=== PATIENT | female | born 1950 | race African-American/Black ===

== ENCOUNTER → 2016-05-16 | Outpatient (CLI) | payer MEDICARE, MEDICAID ==
[2016-05-16 10:45] LABS: ABSOLUTE EOSINOPHILS # (AUTO) 0.4 10^3/uL (0.0-0.6); ABSOLUTE LYMPHOCYTES (AUTO) 1.9 10^3/uL (0.5-4.7); ABSOLUTE MONOCYTES (AUTO) 0.7 10^3/uL (0.1-1.4); ABSOLUTE NEUT (AUTO) 4.4 10^3/uL (1.7-8.2); BASOPHILS % (AUTO) 0.6 % (0-2); EOSINOPHILS % (AUTO) 5.7 % (0-6); HEMATOCRIT 42.4 % (36.0-47.0); HEMOGLOBIN 13.5 g/dL (12.0-15.5); HGB HCT DIFFERENCE -1.9; MEAN CORPUSCULAR HEMOGLOBIN 25.9 pg (27.0-33.4); MEAN CORPUSCULAR HGB CONC 31.9 g/dL (32.0-36.0); MEAN CORPUSCULAR VOLUME 81 fl (80-97); MONOCYTES % (AUTO) 9.2 % (3-13); RED BLOOD COUNT 5.21 10^6/uL (3.72-5.28); RED CELL DISTRIBUTION WIDTH 16.6 % (11.5-14.0); SEGMENTED NEUTROPHILS % (AUTO) 58.5 % (42-78); WHITE BLOOD COUNT 7.5 10^3/uL (4.0-10.5)
[2016-05-16 11:00] LABS: ALANINE AMINOTRANSFERASE 23 U/L (9-52); ALBUMIN 3.9 g/dL (3.5-5.0); ALKALINE PHOSPHATASE 69 U/L (38-126); ANION GAP 12 (5-19); ASPARTATE AMINO TRANSFERASE 21 U/L (14-36); BILIRUBIN,TOTAL 0.7 mg/dL (0.2-1.3); BLOOD UREA NITROGEN 18 mg/dL (7-20); CALCIUM 9.3 mg/dL (8.4-10.2); CARBON DIOXIDE 31 mmol/L (22-30); CHLORIDE 102 mmol/L (98-107); CHOLESTEROL 190.02 mg/dL (0-200); CREATININE RESULT 0.91 mg/dL (0.52-1.25); Direct HDL 47 mg/dL (>40); GLUCOSE 96 mg/dL (75-110); POTASSIUM 3.9 mmol/L (3.6-5.0); SODIUM 145.2 mmol/L (137-145); TOTAL PROTEIN 7.2 g/dL (6.3-8.2); TRIGLYCERIDES 107 mg/dL (<150)
[2016-05-16 11:11] LABS: DIRECT LDL 109 mg/dL (<100)
[2016-05-16 11:30] LABS: THYROID STIMULATING HORMONE 4.66 uIU/mL (0.47-4.68)
== END ==
LOC: OD 09:14
PROVIDERS: ATTEND Internal Medicine
DX: E78.2 Mixed hyperlipidemia (principal); R79.89 Other specified abnormal findings of blood chemistry; E55.9 Vitamin D deficiency, unspecified; Z13.29 Encounter for screening for other suspected endocrine disorder; Z79.899 Other long term (current) drug therapy
CPT/HCPCS: 36415; 80053; 80061; 82306; 84439; 84443; 85025

== ENCOUNTER 2017-04-19 06:17 | Emergency (ER) | payer MEDICARE, MEDICAID ==
--- NOTE | 2017-04-19 07:48 | EKG REPORT ---
SEVERITY:- ABNORMAL ECG - SINUS RHYTHM BORDERLINE T ABNORMALITIES, INFERIOR LEADS : Confirmed by: Scott Morales MD 19-Apr-2017 07:47:50
--- NOTE | 2017-04-19 07:59 | RADIOLOGY REPORT (SQ) ---
EXAM DESCRIPTION: CHEST SINGLE VIEW COMPLETED DATE/TIME: 04/19/2017 7:51 am REASON FOR STUDY: sob COMPARISON: None. EXAM PARAMETERS: NUMBER OF VIEWS: One view. TECHNIQUE: Single frontal radiographic view of the chest acquired. RADIATION DOSE: NA LIMITATIONS: None. FINDINGS: LUNGS AND PLEURA: No opacities, masses or pneumothorax. No pleural effusion. MEDIASTINUM AND HILAR STRUCTURES: No masses. Contour normal. HEART AND VASCULAR STRUCTURES: Heart normal in size. Normal vasculature. BONES: No acute findings. HARDWARE: None in the chest. OTHER: No other significant finding. IMPRESSION: NO ACUTE RADIOGRAPHIC FINDING IN THE CHEST. TECHNICAL DOCUMENTATION: JOB ID: [id number] [employer]- All Rights Reserved
[2017-04-19 08:07] LABS: ABSOLUTE BASOPHILS # (AUTO) 0.1 10^3/uL (0.0-0.2); ABSOLUTE EOSINOPHILS # (AUTO) 0.4 10^3/uL (0.0-0.6); ABSOLUTE LYMPHOCYTES (AUTO) 1.1 10^3/uL (0.5-4.7); ABSOLUTE MONOCYTES (AUTO) 0.5 10^3/uL (0.1-1.4); ABSOLUTE NEUT (AUTO) 4.9 10^3/uL (1.7-8.2); BASOPHILS % (AUTO) 1.2 % (0-2); EOSINOPHILS % (AUTO) 5.2 % (0-6); HEMATOCRIT 39.9 % (36.0-47.0); MEAN CORPUSCULAR HEMOGLOBIN 26.5 pg (27.0-33.4); MEAN CORPUSCULAR HGB CONC 32.7 g/dL (32.0-36.0); MEAN CORPUSCULAR VOLUME 81 fl (80-97); MONOCYTES % (AUTO) 7.9 % (3-13); PLATELET COUNT 146 10^3/uL (150-450); RED BLOOD COUNT 4.93 10^6/uL (3.72-5.28); SEGMENTED NEUTROPHILS % (AUTO) 69.7 % (42-78); TOTAL CELLS COUNTED % (AUTO) 100 %
[2017-04-19 08:12] LABS: APPEARANCE,URINE SLIGHTLY-CLOUDY; BILIRUBIN,URINE NEGATIVE (NEGATIVE); COLOR,URINE YELLOW; GLUCOSE, URINE NEGATIVE (NEGATIVE); KETONES,URINE NEGATIVE (NEGATIVE); LEUKOCYTE ESTERASE,URINE SMALL (NEGATIVE); NITRITE,URINE NEGATIVE (NEGATIVE); PROTEIN,URINE NEGATIVE (NEGATIVE); URINE SPECIFIC GRAVITY 1.015
[2017-04-19 08:28] LABS: ALANINE AMINOTRANSFERASE 25 U/L (9-52); ALBUMIN 3.6 g/dL (3.5-5.0); ALKALINE PHOSPHATASE 59 U/L (38-126); ANION GAP 8 (5-19); ASPARTATE AMINO TRANSFERASE 23 U/L (14-36); BILIRUBIN,DIRECT 0.4 mg/dL (0.0-0.4); BILIRUBIN,TOTAL 0.7 mg/dL (0.2-1.3); BLOOD UREA NITROGEN 15 mg/dL (7-20); CALCIUM 9.2 mg/dL (8.4-10.2); CARBON DIOXIDE 27 mmol/L (22-30); CHLORIDE 104 mmol/L (98-107); CREATINE KINASE 82 U/L (30-135); GLUCOSE 103 mg/dL (75-110); POTASSIUM 3.9 mmol/L (3.6-5.0); SODIUM 139.3 mmol/L (137-145); TOTAL PROTEIN 6.7 g/dL (6.3-8.2)
[2017-04-19 08:39] LABS: CREATINE KINASE MB 0.43 ng/mL (<4.55)
[2017-04-19 08:40] LABS: TROPONIN I < 0.012 ng/mL
--- NOTE | 2017-04-19 09:04 | ER Document Report ---
ED General - General Chief Complaint: Weakness Stated Complaint: WEAKNESS Time Seen by Provider: 04/19/17 07:06 TRAVEL OUTSIDE OF THE [place] IN LAST 30 DAYS: No - HPI Patient complains to provider of: Weakness Notes: Patient coming in for evaluation of weakness. Patient states over the last 3 days taking in a antibiotic ciprofloxacin for UTI. Patient states also having some slight nausea. Patient states weakness however no unilateral no fevers no chills no nausea no vomiting patient was able to bring herself to the ER. Patient resting comfortably upon my evaluation. - Related Data Allergies/Adverse Reactions: iodine Allergy (Verified 01/05/17 10:34) shrimp Allergy (Verified 01/05/17 10:34) Past Medical History - Social History Smoking Status: Unknown if Ever Smoked Frequency of alcohol use: None Family History: Reviewed & Not Pertinent Patient has suicidal ideation: No Patient has homicidal ideation: No Renal/ Medical History: Denies: Hx Peritoneal Dialysis Musculoskeltal Medical History: Reports Hx Arthritis Past Surgical History: Reports: Hx Hysterectomy Review of Systems - Review of Systems Constitutional: Weakness EENT: No symptoms reported Cardiovascular: No symptoms reported Respiratory: No symptoms reported Gastrointestinal: No symptoms reported Genitourinary: No symptoms reported Female Genitourinary: No symptoms reported Musculoskeletal: No symptoms reported Skin: No symptoms reported Hematologic/Lymphatic: No symptoms reported Neurological/Psychological: No symptoms reported -: Yes All other systems reviewed and negative Physical Exam - Vital signs Vitals: Temp Pulse Resp BP Pulse Ox 98.6 F 61 18 152/82 H 97 04/19/17 06:25 04/19/17 06:25 04/19/17 06:25 04/19/17 06:25 04/19/17 06:25 Interpretation: Normal - General General appearance: Appears well, Alert - HEENT Head: Normocephalic, Atraumatic Eyes: Normal Pupils: PERRL - Respiratory Respiratory status: No respiratory distress Chest status: Nontender Breath sounds: Normal Chest palpation: Normal - Cardiovascular Rhythm: Regular Heart sounds: Normal auscultation Murmur: No - Abdominal Inspection: Normal Distension: No distension Bowel sounds: Normal Tenderness: Nontender Organomegaly: No organomegaly - Back Back: Normal, Nontender - Extremities General upper extremity: Normal inspection, Nontender, Normal color, Normal ROM , Normal temperature General lower extremity: Normal inspection, Nontender, Normal color, Normal ROM , Normal temperature, Normal weight bearing. No: Alessia's sign - Neurological Neuro grossly intact: Yes Cognition: Normal Orientation: AAOx4 [place] Coma Scale Eye Opening: Spontaneous López Coma Scale Verbal: Oriented López Coma Scale Motor: Obeys Commands López Coma Scale Total: 15 Speech: Normal Motor strength normal: LUE, RUE, LLE, RLE Sensory: Normal - Psychological Associated symptoms: Normal affect, Normal mood - Skin Skin Temperature: Warm Skin Moisture: Dry Skin Color: Normal Course - Re-evaluation Re-evalutation: 04/19/17 15:10 Patient coming in for evaluation of weakness. No signs of acute pathology on our evaluation. Patient may be experiencing side effects from ciprofloxacin. Patient was given nausea medication patient will be discharged home. The patient presents with nausea without signs of peritonitis or other life- threatening or serious etiology. The patient appears stable for discharge and has been instructed to return immediately if the symptoms worsen in any way, or in 8-12hr if not improved for re-evaluation. The patient has been instructed to return if the symptoms worsen or change in any way. - Vital Signs Vital signs: Temp Pulse Resp BP Pulse Ox 97.7 F 55 L 15 170/93 H 95 04/19/17 10:00 04/19/17 10:00 04/19/17 10:00 04/19/17 10:00 04/19/17 10:00 - Laboratory Result Diagrams: 04/19/17 07:54 04/19/17 07:54 Laboratory results interpreted by me: 04/19/17 04/19/17 04/19/17 07:17 07:54 07:54 MCH 26.5 L RDW 16.0 H Plt Count 146 L Est GFR (Non-Af Amer) 53 L Urine Urobilinogen 2.0 H Ur Leukocyte Esterase SMALL H Discharge - Discharge Clinical Impression: Nausea, Weakness, UTI under current treatment Condition: Good Disposition: HOME, SELF-CARE Instructions: Ciprofloxacin ([facility]), Nausea or Vomiting, Nonspecific ([facility]), Urinary Tract Infection ([facility]), Weakness ([facility]) Additional Instructions: Your laboratory studies today did not show any critical pathology for your generalized weakness. I do believe your weakness and feeling unwell and nausea is more likely due to the antibiotic that you are taking right now. This is a side effect of the antibiotic. He may break her tablets in half and take him 4 times a day. Please make sure you are eating healthy diet I would recommend yogurt to prevent any further diarrhea from your antibiotics. He may take the Zofran as provided return to the ER for any concerns follow-up with your primary care physician in 3-5 days. Prescriptions: Ondansetron [Zofran Odt 4 mg Tablet] 4 mg PO Q4HP PRN #30 tab.rapdis PRN Reason: Forms: Elevated Blood Pressure Referrals: IRAIDA MALAGON MD [Primary Care Provider] - Follow up in 3-5 days
[2017-04-19 10:23] VITALS: BP 170/93
== END 2017-04-19 10:08 | disposition home or self-care (01) ==
LOC: ER 06:17
DX: R53.1 Weakness (principal); R11.0 Nausea; N39.0 Urinary tract infection, site not specified; Z91.013 Allergy to seafood
CPT/HCPCS: 36415; 71045; 80053; 81001; 82550; 82553; 84484; 85025; 93005; 93010; 99285

== ENCOUNTER 2017-06-12 09:23 | Emergency (ER) | payer MEDICARE, MEDICAID ==
--- NOTE | 2017-06-12 10:29 | RADIOLOGY REPORT (SQ) ---
EXAM DESCRIPTION: CHEST SINGLE VIEW COMPLETED DATE/TIME: 06/12/2017 10:07 am REASON FOR STUDY: WEAKNESS COMPARISON: 04/19/2017 EXAM PARAMETERS: NUMBER OF VIEWS: One view. TECHNIQUE: Single frontal radiographic view of the chest acquired. RADIATION DOSE: NA LIMITATIONS: None. FINDINGS: LUNGS AND PLEURA: No opacities, masses or pneumothorax. No pleural effusion. MEDIASTINUM AND HILAR STRUCTURES: No masses. Contour normal. HEART AND VASCULAR STRUCTURES: Heart normal in size. Normal vasculature. BONES: No acute findings. HARDWARE: None in the chest. OTHER: No other significant finding. IMPRESSION: NO ACUTE RADIOGRAPHIC FINDING IN THE CHEST. TECHNICAL DOCUMENTATION: JOB ID: [id number] [employer]- All Rights Reserved Reading location - IP/workstation name: [email or web address]
[2017-06-12 10:39] LABS: APPEARANCE,URINE CLOUDY; BILIRUBIN,URINE NEGATIVE (NEGATIVE); COLOR,URINE AMBER; GLUCOSE, URINE NEGATIVE (NEGATIVE); KETONES,URINE NEGATIVE (NEGATIVE); LEUKOCYTE ESTERASE,URINE SMALL (NEGATIVE); NITRITE,URINE NEGATIVE (NEGATIVE); PROTEIN,URINE 30 mg/dL (NEGATIVE); URINE SPECIFIC GRAVITY 1.021
[2017-06-12] MEDS ORDERED: NORMAL SALINE 1000 ML 1,000 ML IV ONE (10:54)
[2017-06-12 11:13] LABS: ABSOLUTE BASOPHILS # (AUTO) 0.1 10^3/uL (0.0-0.2); ABSOLUTE EOSINOPHILS # (AUTO) 0.4 10^3/uL (0.0-0.6); ABSOLUTE LYMPHOCYTES (AUTO) 1.8 10^3/uL (0.5-4.7); ABSOLUTE MONOCYTES (AUTO) 0.7 10^3/uL (0.1-1.4); ABSOLUTE NEUT (AUTO) 6.3 10^3/uL (1.7-8.2); BASOPHILS % (AUTO) 0.9 % (0-2); EOSINOPHILS % (AUTO) 4.1 % (0-6); HEMATOCRIT 41.5 % (36.0-47.0); HEMOGLOBIN 13.6 g/dL (12.0-15.5); LYMPHOCYTES % (AUTO) 19.8 % (13-45); MEAN CORPUSCULAR HEMOGLOBIN 26.5 pg (27.0-33.4); MEAN CORPUSCULAR HGB CONC 32.6 g/dL (32.0-36.0); MEAN CORPUSCULAR VOLUME 81 fl (80-97); MONOCYTES % (AUTO) 7.9 % (3-13); PLATELET COUNT 178 10^3/uL (150-450); RED BLOOD COUNT 5.11 10^6/uL (3.72-5.28); RED CELL DISTRIBUTION WIDTH 15.5 % (11.5-14.0); SEGMENTED NEUTROPHILS % (AUTO) 67.3 % (42-78); TOTAL CELLS COUNTED % (AUTO) 100 %; WHITE BLOOD COUNT 9.3 10^3/uL (4.0-10.5)
[2017-06-12 11:34] LABS: ALANINE AMINOTRANSFERASE 23 U/L (9-52); ALBUMIN 4.2 g/dL (3.5-5.0); ALKALINE PHOSPHATASE 72 U/L (38-126); ANION GAP 10 (5-19); ASPARTATE AMINO TRANSFERASE 24 U/L (14-36); BILIRUBIN,DIRECT 0.2 mg/dL (0.0-0.4); BILIRUBIN,TOTAL 0.7 mg/dL (0.2-1.3); BLOOD UREA NITROGEN 20 mg/dL (7-20); CALCIUM 9.4 mg/dL (8.4-10.2); CARBON DIOXIDE 33 mmol/L (22-30); CHLORIDE 100 mmol/L (98-107); CREATINE KINASE 89 U/L (30-135); GLUCOSE 105 mg/dL (75-110); POTASSIUM 3.7 mmol/L (3.6-5.0); SODIUM 143.3 mmol/L (137-145); TOTAL PROTEIN 7.8 g/dL (6.3-8.2)
[2017-06-12 11:46] LABS: CREATINE KINASE MB 0.51 ng/mL (<4.55); TROPONIN I < 0.012 ng/mL
--- NOTE | 2017-06-12 13:25 | ER Document Report ---
ED General - General Chief Complaint: Weakness Stated Complaint: WEAKNESS Time Seen by Provider: 06/12/17 09:41 TRAVEL OUTSIDE OF THE [place] IN LAST 30 DAYS: No - HPI Patient complains to provider of: Weakness Notes: Patient coming in for evaluation of generalized weakness and dizziness patient states was recently increased her blood pressure medication from 10 mg lisinopril to 20. Denies any head pain chest pain. Patient states slight nausea denies any nausea vomiting states mild diarrhea patient otherwise is resting company upon my evaluation - Related Data Allergies/Adverse Reactions: iodine Allergy (Verified 06/12/17 09:27) shrimp Allergy (Verified 06/12/17 09:27) Past Medical History - Social History Smoking Status: Never Smoker Chew tobacco use (# tins/day): No Frequency of alcohol use: None Drug Abuse: None Family History: Reviewed & Not Pertinent Patient has suicidal ideation: No Patient has homicidal ideation: No - Past Medical History Cardiac Medical History: Reports: Hx Hypercholesterolemia, Hx Hypertension Renal/ Medical History: Denies: Hx Peritoneal Dialysis Musculoskeltal Medical History: Reports Hx Arthritis Past Surgical History: Reports: Hx Hysterectomy Review of Systems - Review of Systems Constitutional: Weakness EENT: No symptoms reported Cardiovascular: No symptoms reported Respiratory: No symptoms reported Gastrointestinal: No symptoms reported Genitourinary: No symptoms reported Female Genitourinary: No symptoms reported Musculoskeletal: No symptoms reported Skin: No symptoms reported Hematologic/Lymphatic: No symptoms reported Neurological/Psychological: No symptoms reported -: Yes All other systems reviewed and negative Physical Exam - Vital signs Vitals: Temp Pulse Resp BP Pulse Ox 98.1 F 77 18 132/74 H 98 06/12/17 09:29 06/12/17 09:29 06/12/17 09:29 06/12/17 09:29 06/12/17 09:29 Interpretation: Normal - General General appearance: Appears well, Alert - HEENT Head: Normocephalic, Atraumatic Eyes: Normal Pupils: PERRL - Respiratory Respiratory status: No respiratory distress Chest status: Nontender Breath sounds: Normal Chest palpation: Normal - Cardiovascular Rhythm: Regular Heart sounds: Normal auscultation Murmur: No - Abdominal Inspection: Normal Distension: No distension Bowel sounds: Normal Tenderness: Nontender Organomegaly: No organomegaly - Back Back: Normal, Nontender - Extremities General upper extremity: Normal inspection, Nontender, Normal color, Normal ROM , Normal temperature General lower extremity: Normal inspection, Nontender, Normal color, Normal ROM , Normal temperature, Normal weight bearing. No: Alessia's sign - Neurological Neuro grossly intact: Yes Cognition: Normal Orientation: AAOx4 [place] Coma Scale Eye Opening: Spontaneous López Coma Scale Verbal: Oriented López Coma Scale Motor: Obeys Commands [place] Coma Scale Total: 15 Speech: Normal Motor strength normal: LUE, RUE, LLE, RLE Sensory: Normal - Psychological Associated symptoms: Normal affect, Normal mood - Skin Skin Temperature: Warm Skin Moisture: Dry Skin Color: Normal Course - Re-evaluation Re-evalutation: 06/12/17 14:49 Patient laboratory results not show any signs of significant pathology. orthostatics were positiveWith dizziness upon standing slight elevation in creatinine more likely due to dehydration or could be due to increase in lisinopril however no critical etiology patient feeling better with IV fluids. Explained to patient that her blood pressure has been quite marginal she has been here in the patient currently is asymptomatic. Patient was educated to return to her decreased dose of 10 mg of lisinopril. Patient will be discharged home. - Vital Signs Vital signs: Temp Pulse Resp BP Pulse Ox 97.2 F 60 17 136/74 H 98 06/12/17 14:08 06/12/17 14:08 06/12/17 14:08 06/12/17 14:08 06/12/17 14:08 - Laboratory Result Diagrams: 06/12/17 10:57 06/12/17 10:57 Laboratory results interpreted by me: 06/12/17 06/12/17 06/12/17 10:08 10:57 10:57 MCH 26.5 L RDW 15.5 H Carbon Dioxide 33 H Creatinine 1.32 H Est GFR ( Amer) 48 L Est GFR (Non-Af Amer) 40 L Urine Protein 30 H Urine Urobilinogen 2.0 H Ur Leukocyte Esterase SMALL H Discharge - Discharge Clinical Impression: Generalized weakness, Dehydration Condition: Good Disposition: HOME, SELF-CARE Instructions: Dehydration ([facility]), Weakness ([facility]) Additional Instructions: Laboratory studies show some slight dehydration which is also confirmed with your positive orthostatics. Please make sure you are drinking plenty water and eating healthy diet. I would recommend decreasing her lisinopril back to the 10 mg. Also highly recommend following up with her primary care physician in the next 3-5 days. Referrals: IRAIDA MALAGON MD [Primary Care Provider] - Follow up in 3-5 days
[2017-06-12 14:12] VITALS: BP 136/74
--- NOTE | 2017-06-12 15:11 | EKG REPORT ---
SEVERITY:- ABNORMAL ECG - SINUS RHYTHM LEFT VENTRICULAR HYPERTROPHY : Confirmed by: Scott Morales MD 12-Jun-2017 15:10:19
== END 2017-06-12 14:12 | disposition home or self-care (01) ==
LOC: ER 09:23
DX: R53.1 Weakness (principal); E86.0 Dehydration; R19.7 Diarrhea, unspecified; I10 Essential (primary) hypertension; Z79.899 Other long term (current) drug therapy; Z90.710 Acquired absence of both cervix and uterus
CPT/HCPCS: 93005; 99285; 96360; 36415; 82553; 82550; 83735; 85025; 80053; 81001; 84484; 71045; 93010; J7030

== ENCOUNTER 2018-03-06 09:20 | Emergency (ER) | payer MEDICARE, MEDICAID ==
--- NOTE | 2018-03-06 09:38 | ER Document Report ---
ED Medical Screen (RME) - General Chief Complaint: Weakness Stated Complaint: SHORTNESS OF BREATH Time Seen by Provider: 03/06/18 09:26 TRAVEL OUTSIDE OF THE [place] IN LAST 30 DAYS: No - Related Data Allergies/Adverse Reactions: iodine Allergy (Verified 03/06/18 09:20) shrimp Allergy (Verified 03/06/18 09:20) Past Medical History - Past Medical History Cardiac Medical History: Reports: Hx Hypercholesterolemia, Hx Hypertension Renal/ Medical History: Denies: Hx Peritoneal Dialysis Musculoskeltal Medical History: Reports Hx Arthritis Past Surgical History: Reports: Hx Hysterectomy Physical Exam - Vital signs Vitals: Temp Pulse Resp BP Pulse Ox 98.4 F 65 16 192/68 H 97 03/06/18 09:25 03/06/18 09:25 03/06/18 09:25 03/06/18 09:25 03/06/18 09:25 Course - Re-evaluation Re-evalutation: 03/06/18 09:36 This is a 67-year-old female who complains of generalized weakness for an unknown period of time. She says at least the last 2 weeks. She is been seen by her primary physician related to this approximately 1 week prior who was uncertain what could be the underlying cause. She presents today because she got up that her blood sugar was low though she is not a diabetic did not feel up to going to [facility]u prompting her to come to the emergency room. I have seen and evaluated this patient in rapid medical screening exam fashion. I have initiated a evaluation and workup, this patient will require further investigation evaluation and disposition determination by secondary provider. - Vital Signs Vital signs: Temp Pulse Resp BP Pulse Ox 98.4 F 65 16 192/68 H 97 03/06/18 09:25 03/06/18 09:25 03/06/18 09:25 03/06/18 09:25 03/06/18 09:25 Doctor's Discharge - Discharge Referrals: IRAIDA MALAGON MD [Primary Care Provider] - Follow up as needed
--- NOTE | 2018-03-06 09:44 | ER Document Report ---
ED General - General Chief Complaint: Weakness Stated Complaint: SHORTNESS OF BREATH Time Seen by Provider: 03/06/18 09:26 Notes: Patient is a 67-year-old female that presents to the emergency department for chief complaint of shortness of breath. Patient states she is been feeling generally weak and short of breath of the past 2 weeks, she states she initially saw her primary care physician for this, and he thought it was related to her m ild asthma or COPD, and told her to use her inhaler, she states is been a little bit worse last few days so she decided to come to the emergency department. She denies having any associated chest pain, wheezing, lightheadedness, fevers, chills, cough, nausea, vomiting or abdominal pain. She states that she just feels generally weak, and has lack of energy. She does not wear oxygen at home. Denies history of heart failure. Past Medical History: Hypertension, hyperlipidemia, history of DVT and PE, remotely, not currently on blood thinners Past Surgical History: Hysterectomy Social History: Denies tobacco, alcohol or drug use. Family History: Reviewed and noncontributory for presenting illness Allergies: Reviewed, see documented allergy list. REVIEW OF SYSTEMS: Other than noted above, the 12 point review of systems was reviewed with the patient and were negative, all pertinent findings are included in the HPI. PHYSICAL EXAMINATION: Vital signs reviewed, nursing noted reviewed. GENERAL: Obese female, well-appearing, well-nourished and in no acute distress. HEAD: Atraumatic, normocephalic. EYES: Eyes appear normal, extraocular movements intact, sclera anicteric, conjunctiva are normal. ENT: nares patent, oropharynx clear without exudates. Moist mucous membranes. NECK: Normal range of motion, supple without lymphadenopathy LUNGS: Breath sounds clear to auscultation bilaterally and equal. No wheezes rales or rhonchi. HEART: Regular rate and rhythm without murmurs ABDOMEN: Soft, nontender, normoactive bowel sounds. No rebound, guarding, or rigidity. No masses appreciated. EXTREMITIES: Nontender, good range of motion, no pitting or edema. NEUROLOGICAL: No focal neurological deficits. Moves all extremities spontaneously Motor and sensory grossly intact on exam. PSYCH: Normal mood, normal affect. SKIN: Warm, Dry, normal turgor, no rashes or lesions noted on exposed skin TRAVEL OUTSIDE OF THE [place] IN LAST 30 DAYS: No - Related Data Allergies/Adverse Reactions: iodine Allergy (Verified 03/06/18 09:20) shrimp Allergy (Verified 03/06/18 09:20) Past Medical History - Social History Smoking Status: Never Smoker Frequency of alcohol use: None Drug Abuse: None Family History: Reviewed & Not Pertinent Patient has suicidal ideation: No Patient has homicidal ideation: No - Past Medical History Cardiac Medical History: Reports: Hx Hypercholesterolemia, Hx Hypertension Renal/ Medical History: Denies: Hx Peritoneal Dialysis Musculoskeletal Medical History: Reports Hx Arthritis Past Surgical History: Reports: Hx Hysterectomy Physical Exam - Vital signs Vitals: Temp Pulse Resp BP Pulse Ox 98.4 F 65 16 192/68 H 97 03/06/18 09:25 03/06/18 09:25 03/06/18 09:25 03/06/18 09:25 03/06/18 09:25 Course - Re-evaluation Re-evalutation: Patient seen and examined vital signs reviewed. Laboratory data and imaging were ordered as appropriate for the patient's presenting symptoms and complaint, with consideration of any critical or life threatening conditions that may be associated with their obtained history and ex am as noted above. Results were reviewed when available and demonstrated EKG was unchanged from anna marie or, negative troponin, and BNP, chest x-ray negative, blood work otherwise unremarkable, and UA, not convincing of UTI, given patient history of pulmonary embolism, a VQ scan was ordered, patient has an allergy to iodine and cannot receive CTA, the VQ scan was negative for pulmonary embolism. The patient was re-evaluated and was stable, not hypoxic, blood pressure stable Evaluation was most consistent with dyspnea, nonspecific, unclear etiology, likely deconditioning, after extensive evaluation in the emergency department feel the patient can be discharged to home. Results were discussed with the patient at this point, after careful consideration I feel that that patient can be discharged from the emergency department, the patient was educated treatments and reasons to return to the [facility] department based on their presumed diagnosis as noted above, they were advised to followup with a primary care physician in 2-3 days. Patient was agreeable to plan of care. *Note is created using voice recognition software and may contain spelling, syntax or grammatical errors. Laboratory 03/06/18 03/06/18 03/06/18 10:00 10:10 10:10 WBC 7.8 RBC 4.98 Hgb 13.4 Hct 41.6 MCV 84 MCH 26.9 L MCHC 32.2 RDW 15.9 H Plt Count 164 Seg Neutrophils % 69.5 Lymphocytes % 18.7 Monocytes % 6.4 Eosinophils % 4.7 Basophils % 0.7 Absolute Neutrophils 5.5 Absolute Lymphocytes 1.5 Absolute Monocytes 0.5 Absolute Eosinophils 0.4 Absolute Basophils 0.1 Sodium 139.6 Potassium 3.7 Chloride 101 Carbon Dioxide 31 H Anion Gap 8 BUN 12 Creatinine 1.07 Est GFR ( Amer) > 60 Est GFR (Non-Af Amer) 51 L Glucose 96 POC Glucose 96 Calcium 8.9 Total Bilirubin 0.5 Direct Bilirubin 0.2 Neonat Total Bilirubin Not Reportable Neonat Direct Bilirubin Not Reportable Neonat Indirect Bili Not Reportable AST 19 ALT 9 Alkaline Phosphatase 78 Troponin I NT-Pro-B Natriuret Pep Total Protein 7.0 Albumin 3.7 TSH Free T4 Urine Color Urine Appearance Urine pH Ur Specific [place] Urine Protein Urine Glucose (UA) Urine Ketones Urine Blood Urine Nitrite Urine Bilirubin Urine Urobilinogen Ur Leukocyte Esterase Urine WBC (Auto) Urine RBC (Auto) Urine Bacteria (Auto) Squamous Epi Cells Auto Amorphous Sediment Auto Urine Mucus (Auto) Urine Ascorbic Acid Influenza A (Rapid) Influenza B (Rapid) 03/06/18 03/06/18 03/06/18 10:10 10:10 10:10 WBC RBC Hgb Hct MCV MCH MCHC RDW Plt Count Seg Neutrophils % Lymphocytes % Monocytes % Eosinophils % Basophils % Absolute Neutrophils Absolute Lymphocytes Absolute Monocytes Absolute Eosinophils Absolute Basophils Sodium Potassium Chloride Carbon Dioxide Anion Gap BUN Creatinine Est GFR ( Amer) Est GFR (Non-Af Amer) Glucose POC Glucose Calcium Total Bilirubin Direct Bilirubin Neonat Total Bilirubin Neonat Direct Bilirubin Neonat Indirect Bili AST ALT Alkaline Phosphatase Troponin I NT-Pro-B Natriuret Pep Total Protein Albumin TSH 3.27 Free T4 1.32 Urine Color YELLOW Urine Appearance CLOUDY Urine pH 6.0 Ur Specific [place] 1.008 Urine Protein NEGATIVE Urine Glucose (UA) NEGATIVE Urine Ketones NEGATIVE Urine Blood SMALL H Urine Nitrite NEGATIVE Urine Bilirubin NEGATIVE Urine Urobilinogen NEGATIVE Ur Leukocyte Esterase LARGE H Urine WBC (Auto) 8 Urine RBC (Auto) 18 Urine Bacteria (Auto) 2+ Squamous Epi Cells Auto 42 Amorphous Sediment Auto TRACE Urine Mucus (Auto) RARE Urine Ascorbic Acid NEGATIVE Influenza A (Rapid) NEGATIVE Influenza B (Rapid) NEGATIVE 03/06/18 10:10 WBC RBC Hgb Hct MCV MCH MCHC RDW Plt Count Seg Neutrophils % Lymphocytes % Monocytes % Eosinophils % Basophils % Absolute Neutrophils Absolute Lymphocytes Absolute Monocytes Absolute Eosinophils Absolute Basophils Sodium Potassium Chloride Carbon Dioxide Anion Gap BUN Creatinine Est GFR ( Amer) Est GFR (Non-Af Amer) Glucose POC Glucose Calcium Total Bilirubin Direct Bilirubin Neonat Total Bilirubin Neonat Direct Bilirubin Neonat Indirect Bili AST ALT Alkaline Phosphatase Troponin I < 0.012 NT-Pro-B Natriuret Pep 413 Total Protein Albumin TSH Free T4 Urine Color Urine Appearance Urine pH Ur Specific [place] Urine Protein Urine Glucose (UA) Urine Ketones Urine Blood Urine Nitrite Urine Bilirubin Urine Urobilinogen Ur Leukocyte Esterase Urine WBC (Auto) Urine RBC (Auto) Urine Bacteria (Auto) Squamous Epi Cells Auto Amorphous Sediment Auto Urine Mucus (Auto) Urine Ascorbic Acid Influenza A (Rapid) Influenza B (Rapid) Chest X-Ray 03/06/18 09:35 IMPRESSION: No acute abnormality of the lungs. Lung Scan-VQ NM 03/06/18 11:42 IMPRESSION: NORMAL VENTILATION-PERFUSION LUNG SCAN. NEGATIVE FOR PULMONARY EMBOLI. - Vital Signs Vital signs: Temp Pulse Resp BP Pulse Ox 98.4 F 65 16 171/82 H 100 03/06/18 09:25 03/06/18 09:25 03/06/18 11:01 03/06/18 11:01 03/06/18 11:01 - Laboratory Result Diagrams: 03/06/18 10:10 03/06/18 10:10 Laboratory results interpreted by me: 03/06/18 03/06/18 03/06/18 10:10 10:10 10:10 MCH 26.9 L RDW 15.9 H Carbon Dioxide 31 H Est GFR (Non-Af Amer) 51 L Urine Blood SMALL H Ur Leukocyte Esterase LARGE H Discharge - Discharge Clinical Impression: Dyspnea Qualifiers: Dyspnea type: unspecified Qualified Code(s): R06.00 - Dyspnea, unspecified Condition: Stable Disposition: HOME, SELF-CARE Instructions: Dyspnea, Nonspecific ([facility]) Additional Instructions: Please follow-up with your primary care physician, I would encourage you to start doing extra walking 20 minutes a day, to help get in shape, if you have any worsening shortness of breath however, or chest pain, do not hesitate to return to the emergency department. Referrals: IRAIDA MALAGON MD [Primary Care Provider] - Follow up in 3-5 days
--- NOTE | 2018-03-06 10:24 | RADIOLOGY REPORT (SQ) ---
EXAM DESCRIPTION: CHEST 2 VIEWS COMPLETED DATE/TIME: 03/06/2018 10:01 am REASON FOR STUDY: fatigue COMPARISON: 06/12/2017 EXAM PARAMETERS: NUMBER OF VIEWS: two views TECHNIQUE: Digital Frontal and Lateral radiographic views of the chest acquired. RADIATION DOSE: NA LIMITATIONS: none FINDINGS: LUNGS AND PLEURA: No opacities, masses or pneumothorax. No pleural effusion. MEDIASTINUM AND HILAR STRUCTURES: No masses or contour abnormalities. HEART AND VASCULAR STRUCTURES: Heart normal size. No evidence for failure. BONES: Disc degenerative disease of the thoracic spine. HARDWARE: None in the chest. OTHER: No other significant finding. IMPRESSION: No acute abnormality of the lungs. TECHNICAL DOCUMENTATION: JOB ID: [id number] [employer]- All Rights Reserved Reading location - IP/workstation name: [email or web address]
[2018-03-06 10:53] LABS: ABSOLUTE BASOPHILS # (AUTO) 0.1 10^3/uL (0.0-0.2); ABSOLUTE EOSINOPHILS # (AUTO) 0.4 10^3/uL (0.0-0.6); ABSOLUTE LYMPHOCYTES (AUTO) 1.5 10^3/uL (0.5-4.7); ABSOLUTE MONOCYTES (AUTO) 0.5 10^3/uL (0.1-1.4); ABSOLUTE NEUT (AUTO) 5.5 10^3/uL (1.7-8.2); BASOPHILS % (AUTO) 0.7 % (0-2); EOSINOPHILS % (AUTO) 4.7 % (0-6); HEMATOCRIT 41.6 % (36.0-47.0); HEMOGLOBIN 13.4 g/dL (12.0-15.5); LYMPHOCYTES % (AUTO) 18.7 % (13-45); MEAN CORPUSCULAR HEMOGLOBIN 26.9 pg (27.0-33.4); MEAN CORPUSCULAR HGB CONC 32.2 g/dL (32.0-36.0); MEAN CORPUSCULAR VOLUME 84 fl (80-97); MONOCYTES % (AUTO) 6.4 % (3-13); PLATELET COUNT 164 10^3/uL (150-450); RED BLOOD COUNT 4.98 10^6/uL (3.72-5.28); RED CELL DISTRIBUTION WIDTH 15.9 % (11.5-14.0); SEGMENTED NEUTROPHILS % (AUTO) 69.5 % (42-78); TOTAL CELLS COUNTED % (AUTO) 100 %; WHITE BLOOD COUNT 7.8 10^3/uL (4.0-10.5)
[2018-03-06 10:57] LABS: AMORPHOUS SEDIMENT,URINE TRACE /HPF; APPEARANCE,URINE CLOUDY; BILIRUBIN,URINE NEGATIVE (NEGATIVE); COLOR,URINE YELLOW; GLUCOSE, URINE NEGATIVE (NEGATIVE); KETONES,URINE NEGATIVE (NEGATIVE); LEUKOCYTE ESTERASE,URINE LARGE (NEGATIVE); NITRITE,URINE NEGATIVE (NEGATIVE); PROTEIN,URINE NEGATIVE (NEGATIVE); URINE SPECIFIC GRAVITY 1.008; UROBILINOGEN,URINE NEGATIVE mg/dL (<2.0)
[2018-03-06 11:11] LABS: A TYPE INFLUENZA AG NEGATIVE (NEGATIVE); B INFLUENZA AG NEGATIVE (NEGATIVE)
[2018-03-06 11:22] LABS: ALANINE AMINOTRANSFERASE 9 U/L (9-52); ALBUMIN 3.7 g/dL (3.5-5.0); ALKALINE PHOSPHATASE 78 U/L (38-126); ANION GAP 8 (5-19); ASPARTATE AMINO TRANSFERASE 19 U/L (14-36); BILIRUBIN,DIRECT 0.2 mg/dL (0.0-0.4); BILIRUBIN,TOTAL 0.5 mg/dL (0.2-1.3); BLOOD UREA NITROGEN 12 mg/dL (7-20); CALCIUM 8.9 mg/dL (8.4-10.2); CARBON DIOXIDE 31 mmol/L (22-30); CHLORIDE 101 mmol/L (98-107); GLUCOSE 96 mg/dL (75-110); POTASSIUM 3.7 mmol/L (3.6-5.0); SODIUM 139.6 mmol/L (137-145)
[2018-03-06 11:32] LABS: NT PRO BNP 413 pg/mL (5-900)
[2018-03-06 11:33] LABS: TROPONIN I < 0.012 ng/mL
[2018-03-06 11:38] LABS: FREE T4 (FREE THYROXINE) 1.32 ng/dL (0.78-2.19)
[2018-03-06 11:51] LABS: THYROID STIMULATING HORMONE 3.27 uIU/mL (0.47-4.68)
--- NOTE | 2018-03-06 12:50 | EKG REPORT ---
SEVERITY:- ABNORMAL ECG - SINUS RHYTHM LVH BY VOLTAGE NONSPECIFIC T ABNORMALITIES, INFERIOR LEADS : Confirmed by: Elisha Nunez MD 06-Mar-2018 12:49:25
--- NOTE | 2018-03-06 13:40 | RADIOLOGY REPORT (SQ) ---
EXAM DESCRIPTION: NM LUNG VENT/PERF SCAN COMPLETED DATE/TIME: 03/06/2018 1:28 pm REASON FOR STUDY: shortness of breath, hx of PE COMPARISON: Radiographs from today. RADIONUCLIDE AND DOSE: 5.22 millicuries TC-99m MAA Intravenous 32.1 millicuries TC-99m DTPA Inhaled aerosol TECHNIQUE: Eight views of the lungs acquired post ventilation of DTPA aerosol. Eight matching views of the lungs acquired following injection of MAA. LIMITATIONS: None. FINDINGS: VENTILATION: Symmetric and homogeneous distribution of DTPA aerosol during ventilatory pha se. No significant areas of photopenia. PERFUSION: Perfusion images with normal homogenous activity and no wedge-shaped or segmental defects. No ventilation-perfusion mismatches. OTHER: No other significant finding. IMPRESSION: NORMAL VENTILATION-PERFUSION LUNG SCAN. NEGATIVE FOR PULMONARY EMBOLI. TECHNICAL DOCUMENTATION: JOB ID: [id number] [employer]- All Rights Reserved Reading location - IP/workstation name: [email or web address]
[2018-03-06 14:09] VITALS: BP 153/87
== END 2018-03-06 14:09 | disposition home or self-care (01) ==
LOC: ER 09:20
DX: J44.9 Chronic obstructive pulmonary disease, unspecified (principal); R06.02 Shortness of breath; R53.1 Weakness; I10 Essential (primary) hypertension; Z91.013 Allergy to seafood
CPT/HCPCS: 93005; 99285; 36415; 87086; 84439; 82962; 84443; 85025; 87088; 80053; 81001; 84484; 87186; 87804; 83880; 71046; 78582; 93010; A9540; A9567; Q9969

== ENCOUNTER 2018-04-06 13:23 | Emergency (ER) | payer MEDICARE, MEDICAID ==
[2018-04-06 14:12] VITALS: BP 116/65
[2018-04-06] MEDS ORDERED: NORMAL SALINE 1000 ML 1,000 ML IV ONE (14:55)
--- NOTE | 2018-04-06 14:55 | ER Document Report ---
ED Medical Screen (RME) - General Chief Complaint: Flu Symptoms Stated Complaint: FLU LIKE SYMPTOMS Time Seen by Provider: 04/06/18 14:42 Primary Care Provider: IRAIDA MALAGON MD [Primary Care Provider] - Follow up as needed Notes: Patient is a 67-year-old female that presents to the emergency department for chief complaint of cough and fever. Patient states his symptoms have been going on for several days, and have gotten progressively worse, she said associated fever, chills, she is also had urinary symptoms of urinary frequency, recently had diagnosis of UTIs, not currently on antibiotics. Several other family members have had cough and similar symptoms. ROS: Other than noted above, the 12 point review of systems was reviewed with the patient and were negative, all pertinent findings are included in the HPI. PHYSICAL EXAMINATION: Vital signs reviewed. GENERAL: Ill-appearing female, appears uncomfortable HEAD: Atraumatic, normocephalic. EYES: Pupils equal round extraocular movements intact, conjunctiva are normal. ENT: Nares patent NECK: Normal range of motion CV: Heart rate tachycardic, regular rhythm LUNGS: No respiratory distress wet cough on exam Musculoskeletal: Normal range of motion NEUROLOGICAL: Normal speech PSYCH: Normal mood, normal affect. MDM: Patient seen and examined for rapid initial assessment. Vital signs reviewed. A comprehensive ED assessment and evaluation of the patient, analysis of test results and completion of the medical decision making process will be conducted by additional ED providers. *Note is created using voice recognition software and may contain spelling, syntax or grammatical errors. TRAVEL OUTSIDE OF THE [place] IN LAST 30 DAYS: No - Related Data Allergies/Adverse Reactions: iodine Allergy (Verified 04/06/18 13:26) shrimp Allergy (Verified 04/06/18 13:26) Past Medical History - Past Medical History Cardiac Medical History: Reports: Hx Hypercholesterolemia, Hx Hypertension Renal/ Medical History: Denies: Hx Peritoneal Dialysis Musculoskeltal Medical History: Reports Hx Arthritis Past Surgical History: Reports: Hx Hysterectomy Physical Exam - Vital signs Vitals: Temp Pulse Resp BP Pulse Ox 102.2 F H 102 H 20 116/65 98 04/06/18 14:11 04/06/18 14:11 04/06/18 14:11 04/06/18 14:11 04/06/18 14:11 Course - Vital Signs Vital signs: Temp Pulse Resp BP Pulse Ox 102.2 F H 102 H 20 116/65 98 04/06/18 14:11 04/06/18 14:11 04/06/18 14:11 04/06/18 14:11 04/06/18 14:11 Doctor's Discharge - Discharge Referrals: IRAIDA MALAGON MD [Primary Care Provider] - Follow up as needed
--- NOTE | 2018-04-06 15:56 | RADIOLOGY REPORT (SQ) ---
EXAM DESCRIPTION: CHEST SINGLE VIEW COMPLETED DATE/TIME: 04/06/2018 3:48 pm REASON FOR STUDY: cough COMPARISON: 03/16/2018 EXAM PARAMETERS: NUMBER OF VIEWS: One view. TECHNIQUE: Single frontal radiographic view of the chest acquired. RADIATION DOSE: NA LIMITATIONS: None. FINDINGS: LUNGS AND PLEURA: No opacities, masses or pneumothorax. No pleural effusion. MEDIASTINUM AND HILAR STRUCTURES: No masses. Contour normal. HEART AND VASCULAR STRUCTURES: Heart normal in size. Normal vasculature. BONES: No acute findings. HARDWARE: None in the chest. OTHER: No other significant finding. IMPRESSION: NO ACUTE RADIOGRAPHIC FINDING IN THE CHEST. TECHNICAL DOCUMENTATION: JOB ID: [id number] [employer]- All Rights Reserved Reading location - IP/workstation name: [email or web address]
[2018-04-06] MEDS ORDERED: KETOROLAC TROMETHAMINE INJ/PF 30 MG/1 ML SDV IV ONE (16:54)
[2018-04-06 17:01] LABS: INTERNATIONAL RATION (INR) 0.99; PROTHROMBIN TIME 13.6 SEC (11.4-15.4)
[2018-04-06 17:02] LABS: VENOUS BLOOD BASE EXCESS 2.9 mmol/L; VENOUS BLOOD HCO3 29.1 mmol/L (20-32); VENOUS BLOOD PCO2 50.8 mmHg (35-63); VENOUS BLOOD PH 7.38 (7.30-7.42)
--- NOTE | 2018-04-06 17:13 | ER Document Report ---
ED General - General Chief Complaint: Flu Symptoms Stated Complaint: FLU LIKE SYMPTOMS Time Seen by Provider: 04/06/18 14:42 Primary Care Provider: IRAIDA MALAGON MD [Primary Care Provider] - Follow up as needed TRAVEL OUTSIDE OF THE [place] IN LAST 30 DAYS: No - HPI Notes: Patient is a 67-year-old female that presents to the emergency department for chief complaint of cough, fever, body aches and headache. Patient reports coughing began 5 or 6 days ago. Patient reports associated fevers and diffuse body aches. She did call EMS today who gave her a Tylenol in route which she states made her feel much better. She has been taking cough medication at home with some symptomatic management. She did not receive an influenza vaccine this year. She does report multiple family members with similar symptoms of cough and fever. She denies any chest pain, vomiting, abdominal pain. Past Medical History: Retention, hyperlipidemia, seasonal allergies, hypothyroidism Past Surgical History: Negative Social History: Denies drugs alcohol and tobacco Family History: Reviewed and noncontributory for presenting illness Allergies: Reviewed, see documented allergy list. REVIEW OF SYSTEMS: CONSTITUTIONAL : fever chills diaphoresis recent illness EENT: No vision changes congestion No sore throat CARDIOVASCULAR: No chest pain No palpitations RESPIRATORY: shortness of breath cough No difficulty breathing GASTROINTESTINAL: No abdominal pain No nausea No vomiting No diarrhea GENITOURINARY: No dysuria No hematuria No difficulty urinating MUSCULOSKELETAL: No back pain Diffuse myalgias SKIN: No rashes No lesions LYMPHATIC: No swollen, enlarged glands. NEUROLOGICAL: No lightheadedness headache No weakness No paresthesias PSYCHIATRIC: No anxiety No depression PHYSICAL EXAMINATION: Vital signs reviewed, nursing noted reviewed. GENERAL: Ill-appearing, obese and in no acute distress. HEAD: Atraumatic, normocephalic. EYES: Eyes appear normal, extraocular movements intact, sclera anicteric, conjunctiva are normal. ENT: nares patent, oropharynx clear without exudates. Mildly dry mucous membranes. NECK: Normal range of motion, supple without lymphadenopathy LUNGS: Breath sounds clear to auscultation bilaterally and equal. No wheezes rales or rhonchi. HEART: Regular rate and rhythm without murmurs ABDOMEN: Soft, nontender, normoactive bowel sounds. No rebound, guarding, or rigidity. No masses appreciated. EXTREMITIES: Nontender, good range of motion, no pitting or edema. NEUROLOGICAL: No focal neurological deficits. Moves all extremities spontaneously Motor and sensory grossly intact on exam. PSYCH: Normal mood, normal affect. SKIN: Warm, Dry, normal turgor, no rashes or lesions noted on exposed skin - Related Data Allergies/Adverse Reactions: iodine Allergy (Verified 04/06/18 13:26) shrimp Allergy (Verified 04/06/18 13:26) Past Medical History - Social History Smoking Status: Never Smoker Chew tobacco use (# tins/day): No Frequency of alcohol use: None Drug Abuse: None Family History: Reviewed & Not Pertinent Patient has suicidal ideation: No Patient has homicidal ideation: No - Past Medical History Cardiac Medical History: Reports: Hx Hypercholesterolemia, Hx Hypertension Renal/ Medical History: Denies: Hx Peritoneal Dialysis Musculoskeletal Medical History: Reports Hx Arthritis Past Surgical History: Reports: Hx Hysterectomy Physical Exam - Vital signs Vitals: Temp Pulse Resp BP Pulse Ox 102.2 F H 102 H 20 116/65 98 04/06/18 14:11 04/06/18 14:11 04/06/18 14:11 04/06/18 14:11 04/06/18 14:11 Course - Re-evaluation Re-evalutation: 04/06/18 17:13 Vitals reviewed. Nursing notes reviewed. Patient was febrile at presentation but had resolution after receiving Tylenol. She will be given IV hydration and Toradol for further symptomatic management. She is oxygenating well on room air and in no acute distress. She does appear ill and symptoms seem consistent with influenza. 04/06/18 18:49 Patient's workup is unremarkable. Her influenza serology is negative. Patient has remained stable on room air. She will be discharged home in stable condition. She was counseled on symptomatic management and return precautions. She is in agreement with plan of care. Laboratory 04/06/18 04/06/18 04/06/18 16:10 16:10 16:10 WBC 9.4 RBC 5.01 Hgb 13.5 Hct 42.0 MCV 84 MCH 26.9 L MCHC 32.0 RDW 15.2 H Plt Count 155 Total Counted 100 Seg Neutrophils % Not Reportable Seg Neuts % (Manual) 86 H Lymphocytes % Not Reportable Lymphocytes % (Manual) 4 L Atypical Lymphs % 1 Monocytes % Not Reportable Monocytes % (Manual) 7 Eosinophils % Not Reportable Eosinophils % (Manual) 2 Basophils % Not Reportable Basophils % (Manual) 0 Absolute Neutrophils Not Reportable Abs Neuts (Manual) 8.1 Absolute Lymphocytes Not Reportable Abs Lymphs (Manual) 0.5 Absolute Monocytes Not Reportable Abs Monocytes (Manual) 0.7 Absolute Eosinophils Not Reportable Absolute Eos (Manual) 0.2 Absolute Basophils Not Reportable Abs Basophils (Manual) 0.0 Platelet Comment ADEQUATE Polychromasia SLIGHT PT 13.6 INR 0.99 VBG pH VBG pCO2 VBG HCO3 VBG Base Excess Sodium 140.7 Potassium 4.1 Chloride 101 Carbon Dioxide 31 H Anion Gap 9 BUN 19 Creatinine 1.63 H Est GFR ( Amer) 38 L Est GFR (Non-Af Amer) 31 L Glucose 104 Lactic Acid Calcium 9.1 Total Bilirubin 0.6 Direct Bilirubin 0.3 Neonat Total Bilirubin Not Reportable Neonat Direct Bilirubin Not Reportable Neonat Indirect Bili Not Reportable AST 31 ALT 8 L Alkaline Phosphatase 74 Troponin I Total Protein 8.2 Albumin 4.4 Urine Color Urine Appearance Urine pH Ur Specific [place] Urine Protein Urine Glucose (UA) Urine Ketones Urine Blood Urine Nitrite Urine Bilirubin Urine Urobilinogen Ur Leukocyte Esterase Urine WBC (Auto) Urine RBC (Auto) Urine Bacteria (Auto) Squamous Epi Cells Auto Urine Mucus (Auto) Urine Ascorbic Acid Influenza A (Rapid) Influenza B (Rapid) 04/06/18 04/06/18 04/06/18 16:10 16:10 16:10 WBC RBC Hgb Hct MCV MCH MCHC RDW Plt Count Total Counted Seg Neutrophils % Seg Neuts % (Manual) Lymphocytes % Lymphocytes % (Manual) Atypical Lymphs % Monocytes % Monocytes % (Manual) Eosinophils % Eosinophils % (Manual) Basophils % Basophils % (Manual) Absolute Neutrophils Abs Neuts (Manual) Absolute Lymphocytes Abs Lymphs (Manual) Absolute Monocytes Abs Monocytes (Manual) Absolute Eosinophils Absolute Eos (Manual) Absolute Basophils Abs Basophils (Manual) Platelet Comment Polychromasia PT INR VBG pH 7.38 VBG pCO2 50.8 VBG HCO3 29.1 VBG Base Excess 2.9 Sodium Potassium Chloride Carbon Dioxide Anion Gap BUN Creatinine Est GFR ( Amer) Est GFR (Non-Af Amer) Glucose Lactic Acid 1.2 Calcium Total Bilirubin Direct Bilirubin Neonat Total Bilirubin Neonat Direct Bilirubin Neonat Indirect Bili AST ALT Alkaline Phosphatase Troponin I Total Protein Albumin Urine Color YELLOW Urine Appearance CLEAR Urine pH 5.0 Ur Specific [place] 1.018 Urine Protein NEGATIVE Urine Glucose (UA) NEGATIVE Urine Ketones NEGATIVE Urine Blood NEGATIVE Urine Nitrite NEGATIVE Urine Bilirubin NEGATIVE Urine Urobilinogen 4.0 H Ur Leukocyte Esterase SMALL H Urine WBC (Auto) 1 Urine RBC (Auto) 2 Urine Bacteria (Auto) TRACE Squamous Epi Cells Auto 3 Urine Mucus (Auto) RARE Urine Ascorbic Acid NEGATIVE Influenza A (Rapid) Influenza B (Rapid) 04/06/18 04/06/18 16:10 17:37 WBC RBC Hgb Hct MCV MCH MCHC RDW Plt Count Total Counted Seg Neutrophils % Seg Neuts % (Manual) Lymphocytes % Lymphocytes % (Manual) Atypical Lymphs % Monocytes % Monocytes % (Manual) Eosinophils % Eosinophils % (Manual) Basophils % Basophils % (Manual) Absolute Neutrophils Abs Neuts (Manual) Absolute Lymphocytes Abs Lymphs (Manual) Absolute Monocytes Abs Monocytes (Manual) Absolute Eosinophils Absolute Eos (Manual) Absolute Basophils Abs Basophils (Manual) Platelet Comment Polychromasia PT INR VBG pH VBG pCO2 VBG HCO3 VBG Base Excess Sodium Potassium Chloride Carbon Dioxide Anion Gap BUN Creatinine Est GFR ( Amer) Est GFR (Non-Af Amer) Glucose Lactic Acid Calcium Total Bilirubin Direct Bilirubin Neonat Total Bilirubin Neonat Direct Bilirubin Neonat Indirect Bili AST ALT Alkaline Phosphatase Troponin I < 0.012 Total Protein Albumin Urine Color Urine Appearance Urine pH Ur Specific [place] Urine Protein Urine Glucose (UA) Urine Ketones Urine Blood Urine Nitrite Urine Bilirubin Urine Urobilinogen Ur Leukocyte Esterase Urine WBC (Auto) Urine RBC (Auto) Urine Bacteria (Auto) Squamous Epi Cells Auto Urine Mucus (Auto) Urine Ascorbic Acid Influenza A (Rapid) NEGATIVE Influenza B (Rapid) NEGATIVE Chest X-Ray 04/06/18 14:56 IMPRESSION: NO ACUTE RADIOGRAPHIC FINDING IN THE CHEST. - Vital Signs Vital signs: Temp Pulse Resp BP Pulse Ox 99.3 F 102 H 20 116/65 98 04/06/18 15:56 04/06/18 14:11 04/06/18 14:11 04/06/18 14:11 04/06/18 14:11 - Laboratory Result Diagrams: 04/06/18 16:10 04/06/18 16:10 Laboratory results interpreted by me: 04/06/18 04/06/18 04/06/18 16:10 16:10 16:10 MCH 26.9 L RDW 15.2 H Seg Neuts % (Manual) 86 H Lymphocytes % (Manual) 4 L Carbon Dioxide 31 H Creatinine 1.63 H Est GFR ( Amer) 38 L Est GFR (Non-Af Amer) 31 L ALT 8 L Urine Urobilinogen 4.0 H Ur Leukocyte Esterase SMALL H - EKG Interpretation by Me Additional EKG results interpreted by me: 04/06/18 17:17 Interpreted by myself 1705: Normal sinus rhythm, rate 82, normal axis, LVH, no ectopy, no STEMI Discharge - Discharge Clinical Impression: Flu-like symptoms Condition: Stable Disposition: HOME, SELF-CARE Instructions: Influenza ([facility]) [id number] Additional Instructions: Please return to the emergency department if you have any worsening, or concern of your symptoms. Please return to the emergency department if you develop chest pain, difficulty breathing, severe abdominal pain, or ongoing vomiting. Please follow-up with your primary care physician in 2-3 days and any other recommended physicians. If prescribed, take all medications as directed. If you have any questions or concerns do not hesitate to return the emergency department for evaluation. Referrals: IRAIDA MALAGON MD [Primary Care Provider] - Follow up in 3-5 days
[2018-04-06 17:20] LABS: APPEARANCE,URINE CLEAR; BILIRUBIN,URINE NEGATIVE (NEGATIVE); COLOR,URINE YELLOW; GLUCOSE, URINE NEGATIVE (NEGATIVE); KETONES,URINE NEGATIVE (NEGATIVE); LEUKOCYTE ESTERASE,URINE SMALL (NEGATIVE); NITRITE,URINE NEGATIVE (NEGATIVE); PROTEIN,URINE NEGATIVE (NEGATIVE); URINE SPECIFIC GRAVITY 1.018
[2018-04-06 17:26] LABS: HEMOGLOBIN 13.5 g/dL (12.0-15.5); MEAN CORPUSCULAR HEMOGLOBIN 26.9 pg (27.0-33.4); MEAN CORPUSCULAR VOLUME 84 fl (80-97); PLATELET COUNT 155 10^3/uL (150-450); RED BLOOD COUNT 5.01 10^6/uL (3.72-5.28); RED CELL DISTRIBUTION WIDTH 15.2 % (11.5-14.0); WHITE BLOOD COUNT 9.4 10^3/uL (4.0-10.5)
[2018-04-06 17:27] LABS: ALANINE AMINOTRANSFERASE 8 U/L (9-52); ALBUMIN 4.4 g/dL (3.5-5.0); ALKALINE PHOSPHATASE 74 U/L (38-126); ANION GAP 9 (5-19); ASPARTATE AMINO TRANSFERASE 31 U/L (14-36); BILIRUBIN,DIRECT 0.3 mg/dL (0.0-0.4); BILIRUBIN,TOTAL 0.6 mg/dL (0.2-1.3); BLOOD UREA NITROGEN 19 mg/dL (7-20); CALCIUM 9.1 mg/dL (8.4-10.2); CARBON DIOXIDE 31 mmol/L (22-30); CHLORIDE 101 mmol/L (98-107); GLUCOSE 104 mg/dL (75-110); POTASSIUM 4.1 mmol/L (3.6-5.0); SODIUM 140.7 mmol/L (137-145); TOTAL PROTEIN 8.2 g/dL (6.3-8.2)
[2018-04-06 17:40] LABS: ABSOLUTE LYMPHOCYTES# (MANUAL) 0.5 10^3/uL (0.5-4.7); ABSOLUTE MONOCYTES # (MANUAL) 0.7 10^3/uL (0.1-1.4); ABSOLUTE NEUTROPHILS# (MANUAL) 8.1 10^3/uL (1.7-8.2); BASOPHILS % (MANUAL) 0 % (0-2); EOSINOPHILS % (MANUAL) 2 % (0-6); LYMPHOCYTES % (MANUAL) 4 % (13-45); MONOCYTES % (MANUAL) 7 % (3-13); SEGMENTED NEUTROPHILS % (MAN) 86 % (42-78); TOTAL CELLS COUNTED 100
[2018-04-06 17:42] LABS: PLATELET COMMENT ADEQUATE; POLYCHROMASIA SLIGHT
[2018-04-06 18:47] LABS: A TYPE INFLUENZA AG NEGATIVE (NEGATIVE); B INFLUENZA AG NEGATIVE (NEGATIVE)
--- NOTE | 2018-04-06 23:09 | EKG REPORT ---
SEVERITY:- ABNORMAL ECG - SINUS RHYTHM PROBABLE LEFT ATRIAL ABNORMALITY LEFT VENTRICULAR HYPERTROPHY : Confirmed by: Gilson Valdivia 06-Apr-2018 23:08:22
== END 2018-04-06 19:00 | disposition home or self-care (01) ==
LOC: ER 13:23
DX: J11.1 Influenza due to unidentified influenza virus with other respiratory manifestations (principal); R05 Cough; R50.9 Fever, unspecified; M79.10 Myalgia, unspecified site; R51 Headache; I10 Essential (primary) hypertension
CPT/HCPCS: 93005; 99284; 96361; 96374; 36415; 87040; 87086; 85025; 85610; 87088; 80053; 81001; 84484; 87186; 82803; 83605; 87804; 71045; 93010; J1885; J7030

== ENCOUNTER 2020-02-05 07:55 | Emergency (ER) | payer MEDICAID, MEDICARE ==
[2020-02-05 09:05] LABS: ABSOLUTE BASOPHILS # (AUTO) 0.1 10^3/uL (0.0-0.2); ABSOLUTE EOSINOPHILS # (AUTO) 0.4 10^3/uL (0.0-0.6); ABSOLUTE LYMPHOCYTES (AUTO) 1.3 10^3/uL (0.5-4.7); ABSOLUTE MONOCYTES (AUTO) 0.6 10^3/uL (0.1-1.4); ABSOLUTE NEUT (AUTO) 5.7 10^3/uL (1.7-8.2); BASOPHILS % (AUTO) 0.9 % (0-2); EOSINOPHILS % (AUTO) 4.4 % (0-6); HEMATOCRIT 40.5 % (36.0-47.0); HEMOGLOBIN 13.1 g/dL (12.0-15.5); LYMPHOCYTES % (AUTO) 16.1 % (13-45); MEAN CORPUSCULAR HEMOGLOBIN 27.2 pg (27.0-33.4); MEAN CORPUSCULAR HGB CONC 32.2 g/dL (32.0-36.0); MEAN CORPUSCULAR VOLUME 84 fl (80-97); MONOCYTES % (AUTO) 7.3 % (3-13); PLATELET COUNT 151 10^3/uL (150-450); RED CELL DISTRIBUTION WIDTH 15.3 % (11.5-14.0); SEGMENTED NEUTROPHILS % (AUTO) 71.3 % (42-78); TOTAL CELLS COUNTED % (AUTO) 100 %; WHITE BLOOD COUNT 7.9 10^3/uL (4.0-10.5)
--- NOTE | 2020-02-05 09:19 | ER Document Report ---
ED General - General Chief Complaint: Nausea Stated Complaint: NAUSEA,ABDOMINAL PAIN,MUSCLE PAIN Time Seen by Provider: 02/05/20 09:18 Primary Care Provider: IRAIDA MALAGON MD [Primary Care Provider] - Follow up as needed Mode of Arrival: Ambulatory Information source: Patient TRAVEL OUTSIDE OF THE [place] IN LAST 30 DAYS: No - HPI Notes: 69-year-old female with history of hypothyroidism presents to ED for evaluation of possible Covid. Patient notes that she recently moved from her sister's house where her sister has multiple visitors "all the time. "Patient states that she states that she feels somewhat jittery and unwell. She did use her albuterol medication yesterday which may have contributed to this. Endorses no fever or chills. Does have left-sided ear discomfort. Endorses no vertigo or dizziness. States that she is not having any chest discomfort or heaviness. Patient reports she has a "sick "feeling to her stomach. Denies abdominal pain. Denies dysuria or hematuria. Patient is uncertain if she has been in contact with anyone who has tested positive for Covid. Denies other complaints at this time. - Related Data Allergies/Adverse Reactions: iodine Allergy (Verified 02/05/20 11:36) shrimp Allergy (Verified 02/05/20 11:36) Past Medical History - Social History Smoking Status: Unknown if Ever Smoked Family History: Reviewed & Not Pertinent - Medical History Medical History: Other Notes: Asthma Hypothyroidism - Past Medical History Cardiac Medical History: Reports: Hx Hypercholesterolemia, Hx Hypertension Renal/ Medical History: Denies: Hx Peritoneal Dialysis Musculoskeletal Medical History: Reports Hx Arthritis Past Surgical History: Reports: Hx Hysterectomy Review of Systems - Review of Systems Notes: Constitutional: Negative for fever. HENT: Negative for sore throat. Left-Sided ear pain Eyes: Negative for visual changes. Cardiovascular: Negative for chest pain. Respiratory: Negative for shortness of breath. Gastrointestinal: Negative for abdominal pain, vomiting or diarrhea. Genitourinary: Negative for dysuria. Musculoskeletal: Negative for back pain. Skin: Negative for rash. Neurological: Negative for headaches, weakness or numbness. 10 point ROS negative except as marked above and in HPI. Physical Exam - Vital signs Vitals: Temp Pulse Resp BP Pulse Ox 97.7 F 73 18 131/67 H 96 02/05/20 08:10 02/05/20 08:10 02/05/20 08:10 02/05/20 08:10 02/05/20 08:10 Physical Exam: General: No acute distress. Alert and oriented x3. Sitting comfortably in a stretcher. Skin: Intact without any jaundice, pallor, or erythema. Warm and dry. HEENT: Normocephalic, atraumatic. Pupils are equal round reactive to light and accommodation. Extraocular movements are intact. Left TM with erythema and bulging. Right TM unremarkable. Canals are clear. Nares patent without any discharge. Teeth in good condition. Pharynx without erythema, edema, or exudates. No tonsillar enlargement. Uvula is midline. Airway is patent. Neck: Supple with no lymphadenopathy. Thyroid is nontender with no swelling or palpable nodules. Heart: Regular rate and rhythm. S1,S2. No murmurs, rubs, or gallops. Lungs: Clear to auscultation bilaterally. No wheezes, rhonchi, rales. Equal chest expansion. No retractions. Abdomen: Soft, nontender to palpation, nondistended. Positive bowel sounds in all 4 quadrants. No hepatosplenomegaly. No masses. Neuro: GCS 15. Moving all extremities without discomfort. Interpretation: Normal Course - Re-evaluation Re-evalutation: 02/05/20 19:34 69-year-old female presents to ED for evaluation of possible Covid. Patient reports that she was recently moving and may have been exposed at her sister's house as her sister has multiple people in and out of her home often. Patient states that she did use her inhaler last night. She also has left-sided ear pain. Patient was evaluated with labs which do show a mildly low potassium of 3.5. Patient's electrolytes are otherwise benign. There is no leukocytosis. X-ray obtained and is negative for acute pathology. Patient was Covid swab. This is pending and patient was placed under home quarantine. Patient is treated symptomatically and I did prescribe her a course of antibiotics for management of otitis media. Clinically it is erythematous and bulging in nature on the left side. Patient is advised to complete the course of antibiotics and remain on home quarantine until she receives the results of her Covid testing. She is advised to follow-up with her primary care physician and return to the ED if she develops any new or worsening symptoms. Patient is agreeable with this plan of care. - Vital Signs Vital signs: Temp Pulse Resp BP Pulse Ox 97.8 F 63 18 125/76 100 02/05/20 12:46 02/05/20 12:44 02/05/20 12:44 02/05/20 12:44 02/05/20 12:46 - Laboratory Result Diagrams: 02/05/20 08:46 02/05/20 08:46 Laboratory results interpreted by me: 02/05/20 02/05/20 08:46 08:46 RDW 15.3 H Potassium 3.5 L Carbon Dioxide 31 H Est GFR ( Amer) 56 L Est GFR (MDRD) Non-Af 47 L AST 137 H ALT 38 H - Diagnostic Test Radiology reviewed: Image reviewed Radiology results interpreted by me: 02/05/20 19:34 Unremarkable for acute pathology. Discharge - Discharge Clinical Impression: Suspected COVID-19 virus infection Otitis media Qualifiers: Otitis media type: unspecified Chronicity: acute Qualified Code(s): H66.90 - Otitis media, unspecified, unspecified ear Condition: Stable Disposition: HOME, SELF-CARE Prescriptions: Amoxicillin/Potassium Clav [Augmentin 400-57 mg/5 ml Susp] 400 mg PO Q12 10 Days #200 ml Albuterol Sulfate [Proair HFA Inhalation Aerosol 8.5 gm MDI] 2 puff IH Q4H PRN #1 mdi PRN Reason: Referrals: IRAIDA MALAGON MD [Primary Care Provider] - Follow up as needed
[2020-02-05 09:24] LABS: ALKALINE PHOSPHATASE 58 U/L (38-126); ANION GAP 9 (5-19); ASPARTATE AMINO TRANSFERASE 137 U/L (14-36); BILIRUBIN,DIRECT 0.3 mg/dL (0.0-0.4); BLOOD UREA NITROGEN 19 mg/dL (7-20); CALCIUM 8.9 mg/dL (8.4-10.2); CARBON DIOXIDE 31 mmol/L (22-30); CHLORIDE 99 mmol/L (98-107); GLUCOSE 105 mg/dL (75-110); POTASSIUM 3.5 mmol/L (3.6-5.0); TOTAL PROTEIN 7.3 g/dL (6.3-8.2)
--- NOTE | 2020-02-05 10:49 | RADIOLOGY REPORT (SQ) ---
EXAM DESCRIPTION: CHEST SINGLE VIEW IMAGES COMPLETED DATE/TIME: 02/05/2020 10:28 am REASON FOR STUDY: pneumonia COMPARISON: AP view of the chest from 04/06/2018. EXAM PARAMETERS: NUMBER OF VIEWS: One view. TECHNIQUE: An AP view of the chest was obtained. RADIATION DOSE: NA LIMITATIONS: None. FINDINGS: LUNGS AND PLEURA: No consolidation, pleural effusion or pneumothorax. MEDIASTINUM AND HILAR STRUCTURES: No mediastinal or hilar contour abnormality. HEART AND VASCULAR STRUCTURES: The cardiac silhouette and pulmonary vasculature are within normal orozco its. BONES: No acute findings. HARDWARE: None in the chest. OTHER: No other finding. IMPRESSION: No acute cardiopulmonary process. TECHNICAL DOCUMENTATION: JOB ID: [id number] 2010 [employer]- All Rights Reserved Reading location - IP/workstation name: [email or web address]
[2020-02-05 12:46] VITALS: BP 125/76
== END 2020-02-05 12:45 | disposition home or self-care (01) ==
LOC: ER 07:55
DX: H66.92 Otitis media, unspecified, left ear (principal); R11.0 Nausea; R10.9 Unspecified abdominal pain; M79.10 Myalgia, unspecified site; E03.9 Hypothyroidism, unspecified; H92.02 Otalgia, left ear; Z20.828 Contact with and (suspected) exposure to other viral communicable diseases; Z79.899 Other long term (current) drug therapy; Z88.8 Allergy status to other drugs, medicaments and biological substances; J45.909 Unspecified asthma, uncomplicated; I10 Essential (primary) hypertension; E87.6 Hypokalemia
CPT/HCPCS: 99284; 36415; 83690; 85025; 80053; 71045; U0003; C9803; 87635